=== PATIENT | female | born 1975 | race Caucasian/White ===

== ENCOUNTER 2017-06-27 13:21 | Emergency (ER) | payer OTHER, BC ==
[~2017-06-27] VITALS: Ht 160 cm; Wt 101.1 kg
[2017-06-27] MEDS ORDERED: BIRTH CONTROL (14:59)
[2017-06-27] MEDS ORDERED: CETIRIZINE HCL5 MG PO (14:59)
[2017-06-27] MEDS ORDERED: ULTRAM50 MG PO (15:27)
[2017-06-27] MEDS ORDERED: FLEXERIL10 MG PO (15:27)
[2017-06-27 16:16] VITALS: BP 118/81
== END 2017-06-27 16:17 | disposition home or self-care (01) ==
LOC: EME 13:21
DX: S06.0X0A Concussion without loss of consciousness, initial encounter (principal); S00.83XA Contusion of other part of head, initial encounter; S50.811A Abrasion of right forearm, initial encounter; V49.40XA Driver injured in collision with unspecified motor vehicles in traffic accident, initial encounter; Y92.411 Interstate highway as the place of occurrence of the external cause
CPT/HCPCS: 70150; 99281; 99283